=== PATIENT | male | born 1955 | race Caucasian/White ===

== ENCOUNTER 2019-11-16 17:16 | Inpatient (IN) | payer BC ==
[2019-11-16] MEDS ORDERED: SODIUM CHLORIDE 0.9% 1,000 ML IV STA ×3 (17:58→19:35)
--- NOTE | 2019-11-16 18:02 | ED ---
Male Urogenital HPI - General Chief complaint: Abdominal Pain Stated complaint: Abd Pain Time Seen by Provider: 11/16/19 17:44 Source: patient, RN notes reviewed, old records reviewed Mode of arrival: ambulatory Limitations: no limitations - History of Present Illness Initial comments: T this is a 64-year-old male DF for evaluation of difficulty with follow with decreased bowel movements increased weight loss no current hematuria, no significant dysuria has trouble urinating at times recently secondary to dehydration. Patient discharged ankle watery does drink a lot of pop. Mild nausea no vomiting no fevers no history of abdominal surgery MD Complaint: other (Abdominal pain) -: month(s) Location: abdomen Radiation: none Severity: moderate Severity scale (1-10): 4 Quality: aching Consistency: intermittent Improves with: none Worsens with: none Reports: blood in urine - Related Data Home Medications Medication Instructions Recorded Confirmed Aspirin EC [Ecotrin Low Dose] 81 mg PO DAILY 11/16/19 11/16/19 Atorvastatin Calcium [Lipitor] 80 mg PO HS 11/16/19 11/16/19 Ibuprofen 200 mg PO Q8H PRN 11/16/19 11/16/19 [email or web address] Pain Cream 1 - 2 pump TOPICAL QID PRN 11/16/19 11/16/19 carvediloL [Coreg] 6.25 mg PO BID 11/16/19 11/16/19 Allergies Allergy/AdvReac Type Severity Reaction Status Date / Time No Known Allergies Allergy Verified 11/16/19 19:18 Review of Systems ROS Statement: Those systems with pertinent positive or pertinent negative responses have been documented in the HPI. ROS Other: All systems not noted in ROS Statement are negative. Past Medical History Past Medical History: Hyperlipidemia, Hypertension History of Any Multi-Drug Resistant Organisms: None Reported Past Surgical History: Heart Catheterization With Stent, Hernia Repair, Orthopedic Surgery Additional Past Surgical History / Comment(s): Rachell hernandez x 3 Past Psychological History: No Psychological Hx Reported Smoking Status: Current every day smoker Past Alcohol Use History: Occasional Past Drug Use History: None Reported General Exam Limitations: no limitations General appearance: alert, in no apparent distress Head exam: Present: atraumatic, normocephalic, normal inspection Eye exam: Present: normal appearance, PERRL, EOMI. Absent: scleral icterus, conjunctival injection, periorbital swelling ENT exam: Present: normal exam, mucous membranes moist Neck exam: Present: normal inspection. Absent: tenderness, meningismus, lymphadenopathy Respiratory exam: Present: normal lung sounds bilaterally. Absent: respiratory distress, wheezes, rales, rhonchi, stridor Cardiovascular Exam: Present: regular rate, normal rhythm, normal heart sounds. Absent: systolic murmur, diastolic murmur, rubs, gallop, clicks GI/Abdominal exam: Present: soft, normal bowel sounds. Absent: distended, tenderness, guarding, rebound, rigid Extremities exam: Present: normal inspection, full ROM, normal capillary refill. Absent: tenderness, pedal edema, joint swelling, calf tenderness Back exam: Present: normal inspection Neurological exam: Present: alert, oriented X3, CN II-XII intact Psychiatric exam: Present: normal affect, normal mood Skin exam: Present: warm, dry, intact, normal color. Absent: rash Course Vital Signs 11/16/19 17:28 Temperature 98 F Pulse Rate 97 Respiratory 18 Rate Blood Pressure 124/81 O2 Sat by Pulse 97 Oximetry - Reevaluation(s) Reevaluation #1: 11/16/19 18:02 Medical records reviewed Reevaluation #2: 11/16/19 19:42 Spoke patient length regarding findings and questions are answered - Consultations Consultation #1: Spoke with sound who agree to admit the patient Medical Decision Making - Medical Decision Making 64 male to the ER for evaluation of weight loss, nausea vomiting. 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 Patient [place] for surgery and GI - Lab Data Result diagrams: 11/16/19 18:14 11/16/19 18:14 Lab Results 11/16/19 11/16/19 11/16/19 Range/Units 18:14 18:14 18:14 WBC 6.5 (3.8-10.6) k/uL RBC 5.02 (4.30-5.90) m/uL Hgb 14.4 (13.0-17.5) gm/dL Hct 44.1 (39.0-53.0) % MCV 87.8 (80.0-100.0) fL MCH 28.7 (25.0-35.0) pg MCHC 32.7 (31.0-37.0) g/dL RDW 13.3 (11.5-15.5) % Plt Count 105 L (150-450) k/uL Neutrophils % 69 % Lymphocytes % 21 % Monocytes % 6 % Eosinophils % 1 % Basophils % 1 % Neutrophils # 4.5 (1.3-7.7) k/uL Lymphocytes # 1.4 (1.0-4.8) k/uL Monocytes # 0.4 (0-1.0) k/uL Eosinophils # 0.1 (0-0.7) k/uL Basophils # 0.0 (0-0.2) k/uL Sodium 133 L (137-145) mmol/L Potassium 3.0 L (3.5-5.1) mmol/L Chloride 99 (98-107) mmol/L Carbon Dioxide 24 (22-30) mmol/L Anion Gap 10 mmol/L BUN 14 (9-20) mg/dL Creatinine 0.59 L (0.66-1.25) mg/dL Est GFR (CKD-EPI)AfAm >90 (>60 ml/min/1.73 sqM) Est GFR (CKD-EPI)NonAf >90 (>60 ml/min/1.73 sqM) Glucose 276 H (74-99) mg/dL Calcium 9.3 (8.4-10.2) mg/dL Total Bilirubin 8.0 H (0.2-1.3) mg/dL AST 244 H (17-59) U/L ALT 221 H (4-49) U/L Alkaline Phosphatase 491 H (38-126) U/L Creatine Kinase 62 (55-170) U/L Troponin I <0.012 (0.000-0.034) ng/mL Total Protein 6.8 (6.3-8.2) g/dL Albumin 4.1 (3.5-5.0) g/dL Amylase 50 (30-110) U/L Lipase 203 (23-300) U/L - Radiology Data Radiology results: report reviewed (CT abdPelvis - mass v cyst, US GB pending), image reviewed Disposition Clinical Impression: Abdominal pain, Pancreatitis, Hyperbilirubinemia, Nausea and vomiting, Hypokalemia Disposition: ADMITTED IP TO THIS HOSP Condition: Fair Is patient prescribed a controlled substance at d/c from ED?: No Referrals: Aliya Baker MD [Primary Care Provider] - 1-2 days
[2019-11-16 18:34] LABS: Basophils % (A) 1 %; Eosinophils # (A) 0.1 k/uL (0-0.7); Eosinophils % (A) 1 %; HCT 44.1 % (39.0-53.0); HGB 14.4 gm/dL (13.0-17.5); Lymphocytes # (A) 1.4 k/uL (1.0-4.8); Lymphocytes % (A) 21 %; MCH 28.7 pg (25.0-35.0); MCHC 32.7 g/dL (31.0-37.0); MCV 87.8 fL (80.0-100.0); Mean Platelet Volume 6.9; Monocytes # (A) 0.4 k/uL (0-1.0); Monocytes % (A) 6 %; Neutrophils # (A) 4.5 k/uL (1.3-7.7); Neutrophils % (A) 69 %; Platelet Count 105 k/uL (150-450); RBC 5.02 m/uL (4.30-5.90); RDW 13.3 % (11.5-15.5); WBC 6.5 k/uL (3.8-10.6)
[2019-11-16 18:43] LABS: ALT 221 U/L (4-49); AST 244 U/L (17-59); African American GFR (CKD) >90 (>60 ml/min/1.73 sqM); Albumin 4.1 g/dL (3.5-5.0); Alkaline Phosphatase 491 U/L (38-126); Amylase 50 U/L (30-110); Anion Gap 10 mmol/L; Blood Urea Nitrogen 14 mg/dL (9-20); Calcium 9.3 mg/dL (8.4-10.2); Carbon Dioxide 24 mmol/L (22-30); Chloride 99 mmol/L (98-107); Creatine Kinase 62 U/L (55-170); Glucose 276 mg/dL (74-99); Non-African American GFR(CKD) >90 (>60 ml/min/1.73 sqM); Sodium 133 mmol/L (137-145); Total Protein 6.8 g/dL (6.3-8.2)
--- NOTE | 2019-11-16 18:51 | CT ---
EXAMINATION TYPE: CT abdomen pelvis w con DATE OF EXAM: 11/16/2019 COMPARISON: None HISTORY: Abdominal pain, constipation and dysuria. CT DLP: 1235.9 mGycm Automated exposure control for dose reduction was used. CONTRAST: Performed with IV Contrast, patient injected with 100ml mL of Isovue 300. Lung bases are clear. There is no pleural effusion. Heart size is normal. There is no pericardial eff usion. Spleen is enlarged and measures 15 cm. Liver shows no focal defect. There is mildly dilated ga llbladder measuring 4.4 cm. The stomach is intact. There is irregular low density mass involving the body and head of the pancreas. This is elongated an d measures overall 7.5 cm in length and 3.5 cm in diameter. Intrahepatic bile ducts are not dilated. Common bile duct is not dilated. There is no adrenal mass. Kidneys show satisfactory contrast opacification. There is no hydronephrosi s. Delayed images show normal renal excretion. There is no retroperitoneal adenopathy. There is small amount of free fluid in the pelvis. Urinary bladder appears normal. There is no inguinal hernia. The re is prostatic calcification. There is no mesenteric edema. There is no ascites or free air. Appendix appears normal. There is no e vidence of a bowel obstruction. Lumbar vertebra have normal alignment. Disc spaces are fairly normal. Posterior elements are intact. The bony pelvis is intact. IMPRESSION: Large low density mass involving the pancreas. I would consider possibilities of pancreatic pseudocys t or necrotic tumor. Follow-up recommended. Mild free fluid in the pelvis. New graft no evidence of constipation. Large gallbladder suggestive of some degree of gallbladder dysfunction.
[2019-11-16] MEDS ORDERED: MORPHINE SULFATE 4 MG/ML SYRINGE IVP STA (19:35)
[2019-11-16] MEDS ORDERED: PANTOPRAZOLE 40 MG/10 ML VIAL IVP STA (19:35)
[2019-11-16] MEDS ORDERED: SODIUM CHLORIDE 0.9% 1,000 ML IV ONE (19:35)
[2019-11-16 19:51] LABS: Acetaminophen <10.0 ug/mL; Magnesium 1.6 mg/dL (1.6-2.3); Salicylate <1.0 mg/dL
[2019-11-16 20:02] LABS: Partial Thromboplastin Time 21.5 sec (22.0-30.0); Prothrombin Time 10.3 sec (9.0-12.0)
--- NOTE | 2019-11-16 20:49 | US ---
EXAMINATION TYPE: US gallbladder DATE OF EXAM: 11/16/2019 COMPARISON: NONE CLINICAL HISTORY: abd pain. abd pain with nausea EXAM MEASUREMENTS: Liver Length: 13.3 cm Gallbladder Wall: 0.3 cm CBD: 0.9 cm Right Kidney: 11.6 x 4.8 x 5.6 cm *bowel gas limits exam Pancreas: not seen due to gas Liver: wnl Gallbladder: 12.0cm in length with dependant sludge seen, no stones Evidence for sonographic Daly's sign: no CBD: upper limits of normal Right Kidney: wnl IMPRESSION: There is some echogenic bile. No gallstones. Large common bile duct consistent with some degree of g allbladder dysfunction. Large gallbladder consistent with gallbladder dysfunction. Gallbladder measur es 12 cm in length.
--- NOTE | 2019-11-16 23:35 | P.HPIM ---
History of Present Illness H&P Date: 11/16/19 The patient is a 64-year-old male with a PMH of hypertension and hyperlipidemia who presented to the ED with complaints of abdominal discomfort, anorexia, and weight loss. Patient reports that over the past 2 months, he has developed this gradually worsening diffuse abdominal pain with significant anorexia and 10-20 pound weight loss. He notes that the pain is worse postprandially especially if he has a large fatty meal. States that the pain can be as high as an 8 out of 10 immediately after eating, nonradiating, with no alleviating factors. He reports associated nausea but denied vomiting or diarrhea. Denied any prior history of gallstones. Further denied chest pain, cough, shortness of breath, fever, chills. Notes that he used to drink beers a daily basis but hasn't done so in the past several months. Denied heavy alcohol use. In the emergency room a CT abdomen pelvis revealed a large low density mass involving the pancreas, concerning for pancreatic pseudocyst versus necrotic tumor along with mild free fluid in the pelvis and a large gallbladder. Gallbladder ultrasound showed echogenic bile with no gallstones and a large gallbladder. Laboratory evaluation was reviewed with AST 244, ALT 221, alkaline phosphatase 491, total bilirubin 8, WBC count 6.5, pO2 is 105, hemoglobin 14.4, potassium 3.0, lipase 203. Review of Systems Pertinent positives and negatives as discussed in HPI, a complete review of systems was performed and all other systems are negative. Past Medical History Past Medical History: Hyperlipidemia, Hypertension History of Any Multi-Drug Resistant Organisms: None Reported Past Surgical History: Heart Catheterization With Stent, Hernia Repair, Orthopedic Surgery Additional Past Surgical History / Comment(s): Rachell hernandez x 3 Past Psychological History: No Psychological Hx Reported Smoking Status: Current every day smoker Past Alcohol Use History: Occasional Past Drug Use History: None Reported Medications and Allergies Home Medications Medication Instructions Recorded Confirmed Type Aspirin EC [Ecotrin Low Dose] 81 mg PO DAILY 11/16/19 11/16/19 History Atorvastatin Calcium [Lipitor] 80 mg PO HS 11/16/19 11/16/19 History Ibuprofen 200 mg PO Q8H PRN 11/16/19 11/16/19 History [facility] Pain Cream 1 - 2 pump TOPICAL QID PRN 11/16/19 11/16/19 History carvediloL [Coreg] 6.25 mg PO BID 11/16/19 11/16/19 History Allergies Allergy/AdvReac Type Severity Reaction Status Date / Time No Known Allergies Allergy Verified 11/16/19 19:18 Physical Exam Vitals: Vital Signs Temp Pulse Pulse Resp BP BP Pulse Ox 11/16/19 20:52 98.0 F 93 15 178/78 96 11/16/19 20:29 87 18 127/83 98 11/16/19 17:28 98 F 97 18 124/81 97 Intake and Output 11/16/19 11/16/19 11/17/19 14:59 22:59 06:59 Other: # Voids 1 Weight 81.556 kg General: non toxic, no distress, appears at stated age, normal weight Derm: no unusual rashes/lesions no unusual ecchymoses, warm, dry Head: atraumatic, normocephalic, symmetric Eyes: EOMI, no lid lag, anicteric sclera, pupils equal round reactive to light ENT: Nose and ears atraumatic, no thrush, no pharyngeal erythema Neck: No thyromegaly, no cervical lymphadenopathy, trachea midline, supple Mouth: no lip lesion, mucus membranes moist Cardiovascular: S1S2 reg, no murmur, positive posterior tibial pulse bilateral, no edema, capillary refill less than 2 seconds Lungs: CTA bilateral, no rhonchi, no rales , no accessory muscle use Abdominal: soft, nontender to palpation, no guarding, no appreciable organomegaly, normal bowel sounds Ext: no gross muscle atrophy, muscle strength 5 out of 5 in all 4 extremities grossly, no contractures, Neuro: CN II-XI grossly intact, light touch intact all 4 extremities, finger to nose within normal limits, Psych: Alert, oriented, appropriate affect Results CBC & Chem 7: 11/16/19 18:14 11/16/19 18:14 Labs: Abnormal Lab Results - Last 24 Hours (Table) 11/16/19 11/16/19 11/16/19 Range/Units 18:14 18:14 19:27 Plt Count 105 L (150-450) k/uL APTT 21.5 L (22.0-30.0) sec Sodium 133 L (137-145) mmol/L Potassium 3.0 L (3.5-5.1) mmol/L Creatinine 0.59 L (0.66-1.25) mg/dL Glucose 276 H (74-99) mg/dL Total Bilirubin 8.0 H (0.2-1.3) mg/dL AST 244 H (17-59) U/L ALT 221 H (4-49) U/L Alkaline Phosphatase 491 H (38-126) U/L Assessment and Plan Plan: Pancreatic mass with distended gallbladder and dilated biliary ducts -- luis miguel picious for malignancy -Total bilirubin significant elevated -GI consult for possible ERCP -Consider IR consult for biopsy of pancreatic mass -Nothing by mouth after midnight -Monitor liver function tests Hypokalemia -Replace and monitor Hyperglycemia -Check A1c Thrombocytopenia -Monitor CBC -Possibly secondary to underlying malignancy Sandra conditions: Hypertension, hyperlipidemia -Hold statin in setting of abnormal LFTs DVT prophylaxis -IPCDs The patient is admitted with an anticipated greater than 2 midnight stay for evaluation of pancreatic mass CODE STATUS: Full Code Discussed with: Patient Anticipated discharge date: 2-[address]: Home A total of 40 minutes was spent on the care of this complex patient more than 50% of the time was spent in counseling and care coordination.
[2019-11-17] MEDS: MORPHINE SULFATE 4 MG/ML SYRINGE IVP PRN ×2 (00:30→17:36)
[2019-11-17] MEDS: POTASSIUM CHLORIDE ER 20 MEQ TAB.ER PO SCH ×2 (00:30→02:25)
[2019-11-17 06:55] LABS: Glucose,Whole Blood 167 mg/dL (75-99)
[2019-11-17 07:29] LABS: HCT 41.9 % (39.0-53.0); HGB 13.8 gm/dL (13.0-17.5); MCH 29.3 pg (25.0-35.0); MCHC 32.9 g/dL (31.0-37.0); Mean Platelet Volume 6.9; Platelet Count 101 k/uL (150-450); RBC 4.71 m/uL (4.30-5.90); RDW 13.7 % (11.5-15.5)
[2019-11-17 08:20] LABS: ALT 232 U/L (4-49); AST 266 U/L (17-59); African American GFR (CKD) >90 (>60 ml/min/1.73 sqM); Albumin 3.4 g/dL (3.5-5.0); Albumin/Globulin Ratio 1.4; Alkaline Phosphatase 439 U/L (38-126); Anion Gap 6 mmol/L; Blood Urea Nitrogen 10 mg/dL (9-20); Calcium 8.6 mg/dL (8.4-10.2); Carbon Dioxide 24 mmol/L (22-30); Chloride 106 mmol/L (98-107); Globulin 2.5 g/dL; Glucose 174 mg/dL (74-99); Non-African American GFR(CKD) >90 (>60 ml/min/1.73 sqM); Potassium 3.6 mmol/L (3.5-5.1); Sodium 136 mmol/L (137-145); Total Bilirubin 6.9 mg/dL (0.2-1.3); Total Protein 5.9 g/dL (6.3-8.2)
[2019-11-17] MEDS ORDERED: AMPICILLIN-SULBACTAM 1.5 GM in SODIUM CHLORIDE 0.9% 50 ML IVPB STA (08:58)
[2019-11-17] MEDS ORDERED: INDOMETHACIN 50MG SUPPOSITORY RECTAL ONE ×2 (08:58→10:38)
[2019-11-17] MEDS: ASPIRIN 81 MG PO SCH (09:07)
[2019-11-17] MEDS: PANTOPRAZOLE 40 MG/10 ML VIAL IVP SCH (09:08)
[2019-11-17] MEDS: INSULIN ASPART (NovoLOG) 100 UNIT/ML VIAL SQ SCH ×5 (09:09→20:56)
[2019-11-17] MEDS: carvediloL 6.25 MG TAB PO SCH ×2 (09:09→17:31)
[2019-11-17] MEDS ORDERED: IV FLUID CONTINUATION 1,000 ML IV ONE (09:19)
--- NOTE | 2019-11-17 10:09 | P.CONS ---
History of Present Illness - Reason for Consult Consult date: 11/17/19 Elevated bilirubin Requesting physician: Brain Montemayor - Chief Complaint Abdominal pain - History of Present Illness 64-year-old male with a medical history significant for hypertension, coronary artery disease, hyperlipidemia who came to the hospital due to complaints of ab dominal pain, nausea and vomiting. The patient reports symptoms occurring over the past 4-5 weeks. He reports diffuse periumbilical and epigastric abdominal pain described as severe in nature. The patient reports that symptoms will be worsened by eating. He has lost approximately 10-20 pounds due to decreased oral intake secondary to his symptoms. He denies any radiation of the pain with no relieving factors. She denies any prior history of pancreatic or hepatobiliary dysfunction. He denies any heavy alcohol abuse and reports drinking 2-3 beers a couple times a week. On presentation he was found to have markedly elevated bilirubin at 8 with an alkaline phosphatase 491, AST 244 and ALT 221. Ultrasound of the abdomen for evaluation showed some echogenic bile with no gallstones and a 1 cm common bile duct with a large gallbladder as gallbladder dysfunction. Computed tomography scan performed in evaluation showed a large low-density mass involving the pancreas with consideration for pancreatic pseudocyst versus a necrotic tumor with the large gallbladder again redemonstrated. Review of Systems REVIEW OF SYSTEMS: CONSTITUTIONAL: Denies any fevers, chills, but does report fatigue and 10-20 pound weight loss. CARDIOVASCULAR: Denies any chest pain, palpitations high or low blood pressures, does report a known history of coronary artery disease and stent placement. RESPIRATORY: Denies any shortness of breath, hemoptysis or cough. GENITOURINARY: No dysuria or hematuria. MUSCULOSKELETAL: No weakness reported. SKIN: Denies any new rashes or lesions, jaundice or pallor. PSYCHIATRIC: Denies any depression or anxiety. NEUROLOGY: Denies headache, denies any new focal deficits. EARS/NOSE/THROAT: No recent hearing change, congestion, nasal discharge or sore throat. EYES: No pain in eyes, discharge or change in vision. GASTROINTESTINAL: As per HPI. Past Medical History Past Medical History: Hyperlipidemia, Hypertension Additional Past Medical History / Comment(s): prediabetic, Last Myocardial Infarction Date:: 07/2017 History of Any Multi-Drug Resistant Organisms: None Reported Past Surgical History: Heart Catheterization With Stent, Hernia Repair, Orthopedic Surgery Additional Past Surgical History / Comment(s): R david x 3 Past Anesthesia/Blood Transfusion Reactions: No Reported Reaction Date of Last Stent Placement:: 2017 Past Psychological History: No Psychological Hx Reported Smoking Status: Current every day smoker Past Alcohol Use History: Occasional Past Drug Use History: None Reported Additional History: Family history: Reviewed with the patient and noncontributory to current medical presentation Medications and Allergies Home Medications Medication Instructions Recorded Confirmed Type Aspirin EC [Ecotrin Low Dose] 81 mg PO DAILY 11/16/19 11/16/19 History Atorvastatin Calcium [Lipitor] 80 mg PO HS 11/16/19 11/16/19 History Ibuprofen 200 mg PO Q8H PRN 11/16/19 11/16/19 History [facility] Pain Cream 1 - 2 pump TOPICAL QID PRN 11/16/19 11/16/19 History carvediloL [Coreg] 6.25 mg PO BID 11/16/19 11/16/19 History Allergies Allergy/AdvReac Type Severity Reaction Status Date / Time No Known Allergies Allergy Verified 11/16/19 19:18 Physical Exam Vitals: Vital Signs Temp Pulse Pulse Resp BP BP Pulse Ox 11/17/19 06:50 98.3 F 76 16 142/79 96 11/17/19 04:19 15 11/17/19 00:46 98.4 F 82 15 138/71 95 11/17/19 00:30 16 11/16/19 23:12 16 11/16/19 20:52 98.0 F 93 15 178/78 96 11/16/19 20:29 87 18 127/83 98 11/16/19 17:28 98 F 97 18 124/81 97 Intake and Output 11/16/19 11/17/19 11/17/19 22:59 06:59 14:59 Other: # Voids 1 2 Weight 81.556 kg 81.556 kg On physical examination, patient appears comfortable in no apparent distress. HEAD: Normocephalic, atraumatic. EYES: Scleral icterus. No conjunctival injection. MOUTH: No lesions, tongue midline. NECK: Trachea midline, no gross abnormalities. CHEST: Decreased air entry in all mccain. HEART: S1-S2 appreciated. ABDOMEN: Soft, thin and mildly tender to palpation. Bowel sounds are positive. No organomegaly. No guarding or rigidity. EXTREMITIES: No pedal edema. SKIN: No rashes, jaundice. NEUROLOGIC: Alert and oriented x3. No focal deficits. Results CBC & Chem 7: 11/17/19 07:03 11/17/19 07:03 Labs: Abnormal Lab Results - Last 24 Hours (Table) 11/16/19 11/16/19 11/16/19 Range/Units 18:14 18:14 19:27 Plt Count 105 L (150-450) k/uL APTT 21.5 L (22.0-30.0) sec Sodium 133 L (137-145) mmol/L Potassium 3.0 L (3.5-5.1) mmol/L Creatinine 0.59 L (0.66-1.25) mg/dL Glucose 276 H (74-99) mg/dL POC Glucose (mg/dL) (75-99) mg/dL Total Bilirubin 8.0 H (0.2-1.3) mg/dL AST 244 H (17-59) U/L ALT 221 H (4-49) U/L Alkaline Phosphatase 491 H (38-126) U/L Total Protein (6.3-8.2) g/dL Albumin (3.5-5.0) g/dL 11/17/19 11/17/19 11/17/19 Range/Units 06:54 07:03 07:03 Plt Count 101 L (150-450) k/uL APTT (22.0-30.0) sec Sodium 136 L (137-145) mmol/L Potassium (3.5-5.1) mmol/L Creatinine 0.58 L (0.66-1.25) mg/dL Glucose 174 H (74-99) mg/dL POC Glucose (mg/dL) 167 H (75-99) mg/dL Total Bilirubin 6.9 H (0.2-1.3) mg/dL AST 266 H (17-59) U/L ALT 232 H (4-49) U/L Alkaline Phosphatase 439 H (38-126) U/L Total Protein 5.9 L (6.3-8.2) g/dL Albumin 3.4 L (3.5-5.0) g/dL CT scan - abdomen: report reviewed (Computed tomography scan of the abdomen showing a pancreatic pseudocyst versus necrotic tumor with an enlarged gallbladder and dilated CBD.) US - abdomen: report reviewed Assessment and Plan (1) Abdominal pain Narrative/Plan: 64-year-old male presenting to the hospital with abdominal pain, nausea, decreased oral intake and weight loss. Found on imaging to have a pancreatic pseudocyst versus necrotic mass with laboratory evaluation significant for total bilirubin of 8. Both ultrasound and CT showed a distended gallbladder with a dilated CBD. Current Visit: Yes Status: Acute Code(s): R10.9 - UNSPECIFIED ABDOMINAL PAIN SNOMED Code(s): 14011733 (2) Hyperbilirubinemia Current Visit: Yes Status: Acute Code(s): E80.6 - OTHER DISORDERS OF BILIRUBIN METABOLISM SNOMED Code(s): 82394423 (3) Nausea and vomiting Current Visit: Yes Status: Acute Code(s): R11.2 - NAUSEA WITH VOMITING, UNSPECIFIED SNOMED Code(s): 24513998 Plan: Supportive care Nothing by mouth Plan for ERCP due to concerns over CBD obstruction either from external compression or choledocholithiasis Patient will need further characterization of the pancreatic cyst versus mass with either MRI which he reports is not possible due to cardiac stents which she states are not compatible with MRI or endoscopic ultrasound at a tertiary referral center Tumor markers will be ordered Antibiotic therapy and Indocin ordered Further recommendations pending procedure and clinical course Thank you for allowing us to participate in the care of the patient
[2019-11-17] MEDS ORDERED: LACTATED RINGERS 1,000 ML IV ONE ×2 (10:20)
[2019-11-17] MEDS ORDERED: SUCCINYLCHOLINE CHLORIDE 100 MG/5 ML SYR IV ONE (10:24)
[2019-11-17] MEDS ORDERED: PROPOFOL 10 MG/ML 20 ML VIAL IV ONE (10:24)
[2019-11-17] MEDS ORDERED: IOPAMIDOL-300 50ML BTL MISCELLANE ONE (10:40)
--- NOTE | 2019-11-17 10:57 | P.GSCN ---
History of Present Illness Consult date: 11/17/19 Reason for Consult: Abdominal pain History of present illness: Patient presented to the hospital complaining of postprandial abdominal pain. M ostly epigastric. Admits to some dark colored urine. Denies yellowness to his skin. Labs were quite impressive on arrival with bilirubin of 8 and elevated transaminases as well. His amylase and lipase are normal. Ultrasound shows a dilated CBD and a dilated gallbladder. CAT scan showed a cystic lesion of the head of the pancreas. Patient was actually seen in the endoscopy suite where he is about to undergo ERCP. Appears comfortable. Review of Systems The patient denies any acute changes in vision or hearing, no dysphagia or odynophagia, no chest pain or shortness of breath, no dysuria or hematuria, no headache, no runny nose, no rectal bleeding or melena, no unexplained weight loss Past Medical History Past Medical History: Hyperlipidemia, Hypertension Additional Past Medical History / Comment(s): prediabetic, Last Myocardial Infarction Date:: 07/2017 History of Any Multi-Drug Resistant Organisms: None Reported Past Surgical History: Heart Catheterization With Stent, Hernia Repair, Orthopedic Surgery Additional Past Surgical History / Comment(s): Rcahell hernandez x 3 Past Anesthesia/Blood Transfusion Reactions: No Reported Reaction Date of Last Stent Placement:: 2017 Past Psychological History: No Psychological Hx Reported Smoking Status: Current every day smoker Past Alcohol Use History: Occasional Past Drug Use History: None Reported Medications and Allergies Home Medications Medication Instructions Recorded Confirmed Type Aspirin EC [Ecotrin Low Dose] 81 mg PO DAILY 11/16/19 11/16/19 History Atorvastatin Calcium [Lipitor] 80 mg PO HS 11/16/19 11/16/19 History Ibuprofen 200 mg PO Q8H PRN 11/16/19 11/16/19 History [facility] Pain Cream 1 - 2 pump TOPICAL QID PRN 11/16/19 11/16/19 History carvediloL [Coreg] 6.25 mg PO BID 11/16/19 11/16/19 History Allergies Allergy/AdvReac Type Severity Reaction Status Date / Time No Known Allergies Allergy Verified 11/16/19 19:18 Surgical - Exam Vital Signs Temp Pulse Resp BP Pulse Ox 98 F 97 18 124/81 97 11/16/19 17:28 11/16/19 17:28 11/16/19 17:28 11/16/19 17:28 11/16/19 17:28 Physical exam: General: Well-developed, well-nourished HEENT: Normocephalic, sclerae icteric Abdomen: Mild epigastric tenderness, nondistended Extremities: No edema Neuro: Alert and oriented Results - Labs 11/17/19 07:03 11/17/19 07:03 Abnormal Lab Results - Last 24 Hours (Table) 11/16/19 11/16/19 11/16/19 Range/Units 18:14 18:14 19:27 Plt Count 105 L (150-450) k/uL APTT 21.5 L (22.0-30.0) sec Sodium 133 L (137-145) mmol/L Potassium 3.0 L (3.5-5.1) mmol/L Creatinine 0.59 L (0.66-1.25) mg/dL Glucose 276 H (74-99) mg/dL POC Glucose (mg/dL) (75-99) mg/dL Total Bilirubin 8.0 H (0.2-1.3) mg/dL AST 244 H (17-59) U/L ALT 221 H (4-49) U/L Alkaline Phosphatase 491 H (38-126) U/L Total Protein (6.3-8.2) g/dL Albumin (3.5-5.0) g/dL 11/17/19 11/17/19 11/17/19 Range/Units 06:54 07:03 07:03 Plt Count 101 L (150-450) k/uL APTT (22.0-30.0) sec Sodium 136 L (137-145) mmol/L Potassium (3.5-5.1) mmol/L Creatinine 0.58 L (0.66-1.25) mg/dL Glucose 174 H (74-99) mg/dL POC Glucose (mg/dL) 167 H (75-99) mg/dL Total Bilirubin 6.9 H (0.2-1.3) mg/dL AST 266 H (17-59) U/L ALT 232 H (4-49) U/L Alkaline Phosphatase 439 H (38-126) U/L Total Protein 5.9 L (6.3-8.2) g/dL Albumin 3.4 L (3.5-5.0) g/dL Diabetes panel 11/16/19 11/17/19 Range/Units 18:14 07:03 Sodium 133 L 136 L (137-145) mmol/L Potassium 3.0 L 3.6 (3.5-5.1) mmol/L Chloride 99 106 (98-107) mmol/L Carbon Dioxide 24 24 (22-30) mmol/L BUN 14 10 (9-20) mg/dL Creatinine 0.59 L 0.58 L (0.66-1.25) mg/dL Glucose 276 H 174 H (74-99) mg/dL Calcium 9.3 8.6 (8.4-10.2) mg/dL AST 244 H 266 H (17-59) U/L ALT 221 H 232 H (4-49) U/L Alkaline Phosphatase 491 H 439 H (38-126) U/L Total Protein 6.8 5.9 L (6.3-8.2) g/dL Albumin 4.1 3.4 L (3.5-5.0) g/dL Calcium panel 11/16/19 11/17/19 Range/Units 18:14 07:03 Calcium 9.3 8.6 (8.4-10.2) mg/dL Albumin 4.1 3.4 L (3.5-5.0) g/dL Pituitary panel 11/16/19 11/17/19 Range/Units 18:14 07:03 Sodium 133 L 136 L (137-145) mmol/L Potassium 3.0 L 3.6 (3.5-5.1) mmol/L Chloride 99 106 (98-107) mmol/L Carbon Dioxide 24 24 (22-30) mmol/L BUN 14 10 (9-20) mg/dL Creatinine 0.59 L 0.58 L (0.66-1.25) mg/dL Glucose 276 H 174 H (74-99) mg/dL Calcium 9.3 8.6 (8.4-10.2) mg/dL Adrenal panel 11/16/19 11/17/19 Range/Units 18:14 07:03 Sodium 133 L 136 L (137-145) mmol/L Potassium 3.0 L 3.6 (3.5-5.1) mmol/L Chloride 99 106 (98-107) mmol/L Carbon Dioxide 24 24 (22-30) mmol/L BUN 14 10 (9-20) mg/dL Creatinine 0.59 L 0.58 L (0.66-1.25) mg/dL Glucose 276 H 174 H (74-99) mg/dL Calcium 9.3 8.6 (8.4-10.2) mg/dL Total Bilirubin 8.0 H 6.9 H (0.2-1.3) mg/dL AST 244 H 266 H (17-59) U/L ALT 221 H 232 H (4-49) U/L Alkaline Phosphatase 491 H 439 H (38-126) U/L Total Protein 6.8 5.9 L (6.3-8.2) g/dL Albumin 4.1 3.4 L (3.5-5.0) g/dL Assessment and Plan (1) Hyperbilirubinemia Narrative/Plan: 64-year-old male with abdominal pain and cystic lesion of the pancreas. Agree with plans for ERCP. Patient may require MR I pancreas or endoscopic ultrasound following that. Will follow. Current Visit: Yes Status: Acute Code(s): E80.6 - OTHER DISORDERS OF BILIRUBIN METABOLISM SNOMED Code(s): 21144399
--- NOTE | 2019-11-17 11:26 | P.PCN ---
Date of Procedure: 11/17/19 Description of Procedure: Brief history: 64-year-old male with a medical history significant for hypertension, coronary artery disease, hyperlipidemia who came to the hospital due to complaints of abdominal pain, nausea and vomiting. The patient reports symptoms occurring over the past 4-5 weeks. He reports diffuse periumbilical and epigastric abdominal pain described as severe in nature. The patient reports that symptoms will be worsened by eating. He has lost approximately 10-20 pounds due to decreased oral intake secondary to his symptoms. He denies any radiation of the pain with no relieving factors. She denies any prior history of pancreatic or hepatobiliary dysfunction. He denies any heavy alcohol abuse and reports drinking 2-3 beers a couple times a week. On presentation he was found to have markedly elevated bilirubin at 8 with an alkaline phosphatase 491, AST 244 and ALT 221. Ultrasound of the abdomen for evaluation showed some echogenic bile with no gallstones and a 1 cm common bile duct with a large gallbladder as gallbladder dysfunction. Computed tomography scan performed in evaluation showed a large low-density mass involving the pancreas with consideration for pancreatic pseudocyst versus a necrotic tumor with the large gallbladder again redemonstrated. Procedure performed: ERCP with cholangiogram, sphincterotomy and balloon sweep of the bile duct Preoperative diagnoses: Elevated bilirubin, abdominal pain, dilated CBD, suspected CBD obstruction IV sedation per anesthesia Estimated blood loss: Minimal. Procedure: After informed consent was obtained from the patient and after the risks benefits and complications including bleeding perforation and pancreatitis explained in detail the patient was brought into the endoscopy unit. The patient was placed in prone position and IV conscious sedation was administered by anesthesia under continuous monitoring. The Olympus side-viewing duodenoscope was then inserted into the mouth and esophagus intubated without any difficulty. The scope was gradually advanced into the stomach and duodenum. The major papilla was identified without any difficulty and appeared normal. Cannulation of the bile duct with an autotome was performed. A wire was passed into the CBD and dye was injected with a diffusely dilated CBD noted except for some narrowing as the CBD approached the ampulla with suspected external compression, there were no definitive filling defects. The intrahepatics were seen. An 8 mm sphincterotomy was then performed. The sphincterotome was then exchanged over a wire for a balloon with serial sweeping of the CBD significant only for a large amount of bile, and good bile flow. The patient tolerated the procedure well. Impression: ERCP with cholangiogram with a dilated cecum the with tapering as it approached the ampulla and suspicion for external compression. Sphincterotomy and balloon sweep of the CBD productive of large amount of bile with no stones noted. Recommendations: The findings of this examination were discussed with the patient. Okay for full liquids. Continue to monitor CBC, BMP, LFTs. Monitor for signs or symptoms of pancreatitis. Tumor markers ordered. Patient will require further characterization of the graphic cyst versus mass seen on computed tomography scan and if prior cardiac stents are not compatible with the MRI and prohibited would recommend EUS for further evaluation either as a transfer or after discharge pending clinical course.
--- NOTE | 2019-11-17 11:54 | FL ---
Fluoroscopy INDICATION: Pain FINDINGS: Fluoroscopy time: 21 seconds. Images obtained: 3. Within the distal common bile duct there are 2 filling defects which could be small stones. IMPRESSIONS: 1. Documentation of fluoroscopy. 2. Couple small stones may be on the initial image.
--- NOTE | 2019-11-17 13:05 | P.PN ---
Subjective Progress Note Date: 11/17/19 Patient was seen and examined. Seen after ERCP. Underwent sphincterotomy and balloon sweep of the bile duct. Complains of fatigue after his surgery. He denies any chest pain, shortness breath or palpitations. No nausea or vomiting. No fever or chills. Objective - Vital Signs Vital signs: Vital Signs Temp 97.2 F L 11/17/19 11:26 Pulse 77 11/17/19 11:48 Resp 18 11/17/19 11:48 BP 138/74 11/17/19 11:48 Pulse Ox 99 11/17/19 11:48 Intake & Output 11/16/19 11/17/19 11/17/19 18:59 06:59 18:59 Intake Total 1500 Balance 1500 Weight 81.556 kg 81.556 kg Intake: IV 1500 Other: # Voids 2 - Exam General: [non toxic], [no distress], [appears at stated age] Derm: [warm], [dry] Head: [atraumatic], [normocephalic], [symmetric] Eyes: [EOMI], [no lid lag], [anicteric sclera] Mouth: [no lip lesion], [mucus membranes moist] Cardiovascular: [S1S2 reg], [no murmur], [positive posterior tibial pulse bilateral], Lungs: [CTA bilateral], [no rhonchi, no rales] , [no accessory muscle use] Abdominal: [soft], [ nontender to palpation], [no guarding], [no appreciable organomegaly] Ext: [no gross muscle atrophy], [no edema], [no contractures] Neuro: [no focal neuro deficits] Psych: [Alert], [oriented], [appropriate affect] - Labs CBC & Chem 7: 11/17/19 07:03 11/17/19 07:03 Labs: Abnormal Lab Results - Last 24 Hours (Table) 11/16/19 11/16/19 11/16/19 Range/Units 18:14 18:14 19:27 Plt Count 105 L (150-450) k/uL APTT 21.5 L (22.0-30.0) sec Sodium 133 L (137-145) mmol/L Potassium 3.0 L (3.5-5.1) mmol/L Creatinine 0.59 L (0.66-1.25) mg/dL Glucose 276 H (74-99) mg/dL POC Glucose (mg/dL) (75-99) mg/dL Total Bilirubin 8.0 H (0.2-1.3) mg/dL AST 244 H (17-59) U/L ALT 221 H (4-49) U/L Alkaline Phosphatase 491 H (38-126) U/L Total Protein (6.3-8.2) g/dL Albumin (3.5-5.0) g/dL 11/17/19 11/17/19 11/17/19 Range/Units 06:54 07:03 07:03 Plt Count 101 L (150-450) k/uL APTT (22.0-30.0) sec Sodium 136 L (137-145) mmol/L Potassium (3.5-5.1) mmol/L Creatinine 0.58 L (0.66-1.25) mg/dL Glucose 174 H (74-99) mg/dL POC Glucose (mg/dL) 167 H (75-99) mg/dL Total Bilirubin 6.9 H (0.2-1.3) mg/dL AST 266 H (17-59) U/L ALT 232 H (4-49) U/L Alkaline Phosphatase 439 H (38-126) U/L Total Protein 5.9 L (6.3-8.2) g/dL Albumin 3.4 L (3.5-5.0) g/dL Assessment and Plan Assessment: Pancreatic mass with distended gallbladder and dilated biliary ducts -- suspicious for malignancy -Total bilirubin significant elevated -ERCP with cholangiogram shows suspicion for external compression, sphincterotomy and balloon sweep of CBD performed -GI consulted - Follow tumor markers to be ordered by GI - Needs MRI evaluation of pancreas vs EUS -Start full liquid diet -Monitor liver function tests Hyperglycemia -Check A1c -Insulin sliding scale with regular Accu-Cheks and hypoglycemic precautions Thrombocytopenia -Monitor CBC -Possibly secondary to underlying malignancy Sandra conditions: Hypertension, hyperlipidemia -Hold statin in setting of abnormal LFTs DVT prophylaxis -IPCDs
[2019-11-17 16:40] LABS: Glucose,Whole Blood 253 mg/dL (75-99)
[2019-11-17 18:48] LABS: Hemoglobin A1C 13.2 % (4.0-6.0)
[2019-11-17 20:24] LABS: Glucose,Whole Blood 270 mg/dL (75-99)
[2019-11-18] MEDS: MORPHINE SULFATE 4 MG/ML SYRINGE IVP PRN ×4 (01:23→22:24)
[2019-11-18 02:06] VITALS: RESP 16
[2019-11-18] MEDS: ASPIRIN 81 MG PO SCH (07:01)
[2019-11-18] MEDS: carvediloL 6.25 MG TAB PO SCH ×2 (07:01→17:28)
[2019-11-18] MEDS: PANTOPRAZOLE 40 MG/10 ML VIAL IVP SCH (07:02)
[2019-11-18] MEDS: INSULIN ASPART (NovoLOG) 100 UNIT/ML VIAL SQ SCH ×4 (07:03→22:26)
[2019-11-18 07:26] LABS: Glucose,Whole Blood 194 mg/dL (75-99)
[2019-11-18 09:22] LABS: Alpha Fetoprotein, Tumor Mkr 2.6 ng/mL (0.0-7.9)
[2019-11-18 09:31] LABS: African American GFR (CKD) 123.1 (60.0-200.0); Albumin 3.3 g/dL (3.80-4.90); Albumin/Globulin Ratio 1.83 (1.60-3.17); Anion Gap 8.9 mmol/L (4.00-12.00); Calcium 8.5 mg/dL (8.7-10.3); Carbon Dioxide 23.1 mmol/L (21.6-31.8); Globulin 1.8 g/dL (1.6-3.3); Non-African American GFR(CKD) 106.3 (60.0-200.0); Potassium 3.4 mmol/L (3.5-5.5); Total Bilirubin 7.1 mg/dL (0.3-1.2); Total Protein 5.1 g/dL (6.2-8.2)
[2019-11-18] MEDS ORDERED: Potassium Replacement Protocol 1 EACH MISC MISCELLANE PRN ×2 (10:29→10:46)
[2019-11-18] MEDS: NICOTINE 14MG/24HR PATCH TRANSDERM SCH (11:30)
[2019-11-18] MEDS: POTASSIUM CHLORIDE ER 20 MEQ TAB.ER PO SCH ×2 (11:30→12:22)
[2019-11-18 11:51] LABS: Glucose,Whole Blood 231 mg/dL (75-99)
--- NOTE | 2019-11-18 12:13 | P.PN ---
<Madonna Gonzales - Last Filed: 11/18/19 12:03> Subjective Progress Note Date: 11/18/19 CHIEF COMPLAINT: Abdominal pain HISTORY OF PRESENT ILLNESS: Patient is still reporting intermittent epigastric abdominal pain. His urine is still dark. He is status post ERCP with report stating dilated cecum with tapering as it approached the ampulla and suspicion for external compression. Sphincterotomy and balloon sweep of the CBD productive of large amount of bile with no stones noted. Total bilirubin is 7.1 AST 203 ALT 221 alk phos 500 AFP 2.6 tumor marker 19 9 pending. Potassium 3.4 and being replaced by medicine. Patient is afebrile. He is on a full liquid diet and reports that he is hungry. He denies any nausea or vomiting. He has flatus. PHYSICAL EXAM: VITAL SIGNS: Reviewed. GENERAL: Well-developed in no acute distress. HEENT: No sclera icterus. Extraocular movements grossly intact. Moist buccal mucosa. Head is atraumatic, normocephalic. ABDOMEN: Soft. Nondistended. Epigastric tenderness with palpation NEUROLOGIC: Alert and oriented. Cranial nerves II through XII grossly intact. ASSESSMENT: 1. Hyperbilirubinemia 2. Epigastric abdominal pain 3. Cystic lesion of the pancreas PLAN: -Defer to GI for further recommendations Physician Manufacturing Scheduler note has been reviewed by physician. Signing provider agrees with the documented findings, assessment, and plan of care. Objective - Vital Signs Vital signs: Vital Signs Temp 98.0 F 11/18/19 07:00 Pulse 67 11/18/19 07:00 Resp 16 11/18/19 07:00 BP 117/70 11/18/19 07:00 Pulse Ox 94 L 11/18/19 07:00 Intake & Output 11/17/19 11/18/19 11/18/19 18:59 06:59 18:59 Intake Total 1500 Output Total 1 Balance 1499 Intake: IV 1500 Output: Urine/Stool Mix 1 Other: # Voids 1 2 - Labs CBC & Chem 7: 11/17/19 07:03 11/18/19 06:45 Labs: Abnormal Lab Results - Last 24 Hours (Table) 11/17/19 11/17/19 11/17/19 Range/Units 07:03 16:38 20:22 Potassium (3.5-5.5) mmol/L Glucose (70-110) mg/dL POC Glucose (mg/dL) 253 H 270 H (75-99) mg/dL Hemoglobin A1c 13.2 H (4.0-6.0) % Calcium (8.7-10.3) mg/dL Total Bilirubin (0.3-1.2) mg/dL AST (14-35) U/L ALT (10-49) U/L Alkaline Phosphatase (41-126) U/L Total Protein (6.2-8.2) g/dL Albumin (3.80-4.90) g/dL 11/18/19 11/18/19 11/18/19 Range/Units 06:45 07:02 11:38 Potassium 3.4 L (3.5-5.5) mmol/L Glucose 216 H (70-110) mg/dL POC Glucose (mg/dL) 194 H 231 H (75-99) mg/dL Hemoglobin A1c (4.0-6.0) % Calcium 8.5 L (8.7-10.3) mg/dL Total Bilirubin 7.1 H (0.3-1.2) mg/dL AST 203 H (14-35) U/L ALT 221 H (10-49) U/L Alkaline Phosphatase 500 H (41-126) U/L Total Protein 5.1 L (6.2-8.2) g/dL Albumin 3.30 L (3.80-4.90) g/dL <Reji Morejon - Last Filed: 11/18/19 12:27> Subjective As above. Patient's labs minimally improved. Still having upper abdominal pain. Await decision regarding MR I versus endoscopic ultrasound. No surgical intervention planned at this time. Objective - Vital Signs Vital signs: Vital Signs Temp 98.0 F 11/18/19 07:00 Pulse 67 11/18/19 07:00 Resp 16 11/18/19 07:00 BP 117/70 11/18/19 07:00 Pulse Ox 94 L 11/18/19 07:00 Intake & Output 11/17/19 11/18/19 11/18/19 18:59 06:59 18:59 Intake Total 1500 Output Total 1 Balance 1499 Intake: IV 1500 Output: Urine/Stool Mix 1 Other: # Voids 1 2 - Labs CBC & Chem 7: 11/17/19 07:03 11/18/19 06:45 Labs: Abnormal Lab Results - Last 24 Hours (Table) 11/17/19 11/17/19 11/17/19 Range/Units 07:03 16:38 20:22 Potassium (3.5-5.5) mmol/L Glucose (70-110) mg/dL POC Glucose (mg/dL) 253 H 270 H (75-99) mg/dL Hemoglobin A1c 13.2 H (4.0-6.0) % Calcium (8.7-10.3) mg/dL Total Bilirubin (0.3-1.2) mg/dL AST (14-35) U/L ALT (10-49) U/L Alkaline Phosphatase (41-126) U/L Total Protein (6.2-8.2) g/dL Albumin (3.80-4.90) g/dL 11/18/19 11/18/19 11/18/19 Range/Units 06:45 07:02 11:38 Potassium 3.4 L (3.5-5.5) mmol/L Glucose 216 H (70-110) mg/dL POC Glucose (mg/dL) 194 H 231 H (75-99) mg/dL Hemoglobin A1c (4.0-6.0) % Calcium 8.5 L (8.7-10.3) mg/dL Total Bilirubin 7.1 H (0.3-1.2) mg/dL AST 203 H (14-35) U/L ALT 221 H (10-49) U/L Alkaline Phosphatase 500 H (41-126) U/L Total Protein 5.1 L (6.2-8.2) g/dL Albumin 3.30 L (3.80-4.90) g/dL Assessment and Plan (1) Hyperbilirubinemia Current Visit: Yes Status: Acute Code(s): E80.6 - OTHER DISORDERS OF BILIRUBIN METABOLISM SNOMED Code(s): 85250251
[2019-11-18 14:45] LABS: Cancer Antigen 19-9 11425.6 U/mL (0.0-34.9)
[2019-11-18 15:01] VITALS: BMI 23.1
--- NOTE | 2019-11-18 15:29 | P.DS ---
Providers Date of admission: 11/16/19 19:35 Expected date of discharge: 11/18/19 Attending physician: Adis Reich MD Consults: 11/16/19 19:35 Consult Physician Routine Consulting Provider: Reji Morejon Consult Reason/Comments: abd pain Do you want consulting provider notified?: Yes Consult Physician Routine Consulting Provider: Bull Lombardi Consult Reason/Comments: pancreas mass Do you want consulting provider notified?: Yes Primary care physician: Uab Hospital Course: The patient is a 64-year-old male with a PMH of hypertension and hyperlipidemia who presented to the ED with complaints of abdominal discomfort, anorexia, and weight loss. Patient reports that over the past 2 months, he has developed this gradually worsening diffuse abdominal pain with significant anorexia and 10-20 pound weight loss. He notes that the pain is worse postprandially especially if he has a large fatty meal. States that the pain can be as high as an 8 out of 10 immediately after eating, nonradiating, with no alleviating factors. He reports associated nausea but denied vomiting or diarrhea. Denied any prior history of gallstones. Further denied chest pain, cough, shortness of breath, fever, chills. Notes that he used to drink beers a daily basis but hasn't done so in the past several months. Denied heavy alcohol use. In the emergency room a CT abdomen pelvis revealed a large low density mass involving the pancreas, concerning for pancreatic pseudocyst versus necrotic tumor along with mild free fluid in the pelvis and a large gallbladder. Gallbladder ultrasound showed echogenic bile with no gallstones and a large gallbladder. Laboratory evaluation was reviewed with AST 244, ALT 221, alkaline phosphatase 491, total bilirubin 8, WBC count 6.5, pO2 is 105, hemoglobin 14.4, potassium 3.0, lipase 203. Patient underwent ERCP with cholangiogram with a dilated cecum as it approached sample less suspicion for external compression. Patient underwent sphincterotomy and balloon sweep of the CBD. Alpha-fetoprotein was negative. CA-19-9 came back elevated at 11,425. His potassium was 3.4 this morning which was replaced. A1c came back at 13.5. His total bilirubin was 7.1, AST 203, ALT 221 and alkaline phosphatase of 500 at the time of discharge. GI recommended transfer to tertiary facility for endoscopic ultrasound. [facility] was called and accepted the patient for transfer. Patient was seen and examined. No acute events overnight. Patient continues to report abdominal discomfort. No nausea or vomiting. He denies any chest pain, shortness breath or palpitations. General: [non toxic], [no distress], [appears at stated age] Derm: [warm], [dry] Head: [atraumatic], [normocephalic], [symmetric] Eyes: [EOMI], [no lid lag], [anicteric sclera] Mouth: [no lip lesion], [mucus membranes moist] Cardiovascular: [S1S2 reg], [no murmur], [positive DP pulse bilateral], Lungs: [CTA bilateral], [no rhonchi, no rales] , [no accessory muscle use] Abdominal: [soft], [ nontender to palpation], [no guarding], [no appreciable organomegaly] Ext: [no gross muscle atrophy], [no edema], [no contractures] Neuro: [no focal neuro deficits] Psych: [Alert], [oriented], [appropriate affect] Pancreatic mass with distended gallbladder and dilated biliary ducts -- suspicious for malignancy -Total bilirubin significant elevated -ERCP with cholangiogram shows suspicion for external compression, sphincterotomy and balloon sweep of CBD performed -GI consulted -Alpha-fetoprotein negative, CA-19-9 elevated at 11,425 - Needs EUS as per GI -Continue full liquid diet -Monitor liver function tests Hypokalemia - K 3.4 - Replace via protocol and repeat BMP tomorrow morning. Hyperglycemia -A1c 13.2 -Insulin sliding scale with regular Accu-Cheks and hypoglycemic precautions Thrombocytopenia -Monitor CBC -Possibly secondary to underlying malignancy Chronic conditions: Hypertension, hyperlipidemia -Hold statin in setting of abnormal LFTs DVT prophylaxis -IPCDs [Patient with likely pancreatic cancer obstructing bile duct. Needs EUS. [facility] willing to accept the patient. This complex discharge took about 45 minutes to complete.] Pertinent Studies: CT abdomen and pelvis, gallbladder ultrasound, ERCP Procedures: ERCP with cholangiogram Patient Condition at Discharge: Stable Plan - Discharge Summary Discharge Rx Participant: No New Discharge Prescriptions: New Nicotine 14Mg/24Hr Patch [Habitrol] 1 patch TRANSDERM DAILY patch Continue Aspirin EC [Ecotrin Low Dose] 81 mg PO DAILY carvediloL [Coreg] 6.25 mg PO BID Discontinued Ibuprofen 200 mg PO Q8H PRN PRN Reason: [facility] Pain Cream 1 - 2 pump TOPICAL QID PRN PRN Reason: Pain Atorvastatin Calcium [Lipitor] 80 mg PO HS Discharge Medication List Aspirin EC [Ecotrin Low Dose] 81 mg PO DAILY 11/16/19 [History] carvediloL [Coreg] 6.25 mg PO BID 11/16/19 [History] Nicotine 14Mg/24Hr Patch [Habitrol] 1 patch TRANSDERM DAILY patch 11/18/19 [Rx] Follow up Appointment(s)/Referral(s): Aliya Baker MD [Primary Care Provider] - 1-2 days Discharge Disposition: OTHER INSTITUTION NOT DEFINED
[2019-11-18 17:30] LABS: Glucose,Whole Blood 268 mg/dL (75-99)
[2019-11-18 20:45] LABS: Glucose,Whole Blood 244 mg/dL (75-99)
--- NOTE | 2019-11-18 21:42 | PN ---
PROGRESS NOTE DATE OF SERVICE: 11/18/2019 Patient is a 64-year-old pleasant white male admitted to the hospital with abdominal pain, weight loss of almost 60 pounds in the last one year duration and elevated LFTs and jaundice. He underwent ERCP by Dr. Lombardi yesterday that showed dilated common bile duct with slight tapering at the distal common bile duct, status post biliary sphincterotomy and balloon sweep with good free flowing of the bile but there was evidence of extrinsic compression noted. His CT scan done earlier showed a 7.3 cm cystic lesion in the head of the pancreas and possibility of necrotic tumor could not be excluded. His serum transaminases continued to remain elevated and bilirubin is up to 7.1. This morning, he continues to complain of abdominal pain. No nausea, no vomiting. No fever, chills, or night sweats. PHYSICAL EXAMINATION: Appears comfortable, no apparent distress. Vital signs stable. Blood pressure 110/86, pulse rate 99 per minute and afebrile. HEENT examination unremarkable. Conjunctivae pink. Sclerae deeply icteric. Oral cavity no lesions. NECK no JVD or lymph node enlargement. CHEST was clear to auscultation. HEART: Regular rate and rhythm. ABDOMEN: Soft with mild tenderness in the epigastric and right upper quadrant area. EXTREMITIES: No pedal edema. SKIN no rashes. NEUROLOGIC: Alert and oriented x3. No focal deficits. LABS: WBC 5, hemoglobin 13, platelets, T-bilirubin is 7.1. AST and ALT are 203 and 221, alkaline phosphatase is 500. CA-19-9 was reported as 11,425. IMPRESSION: Obstructive jaundice with a 7.7 cm cystic lesion in the head of the pancreas. A pseudocyst versus necrotic tumor could not be excluded status post ERCP by Dr. Lombardi yesterday that showed dilated CBD with tapering the distal common bile duct secondary to extrinsic compression, status post biliary sphincterotomy, but no stent was placed. He continues to have persistent elevation of serum transaminases and bilirubin. CA-99 elevated at 11,425 suspicious for pancreatic neoplasm. RECOMMENDATIONS: The findings of the ERCP and lab results were discussed with the patient as well as with Dr. Reich. At this time, we will transfer him to [facility] for endoscopic ultrasound of the pancreas and further management. The patient is agreeable with the plan. Thank you for this consultation. MMODL / IJN: [id number] /
[2019-11-19 07:26] LABS: Glucose,Whole Blood 170 mg/dL (75-99)
[2019-11-19 07:58] VITALS: BP 144/82; PULSE 69; TEMP 98.1
[2019-11-19] MEDS: INSULIN ASPART (NovoLOG) 100 UNIT/ML VIAL SQ SCH ×2 (08:36→12:38)
[2019-11-19] MEDS: carvediloL 6.25 MG TAB PO SCH (08:45)
[2019-11-19] MEDS: ASPIRIN 81 MG PO SCH (08:45)
[2019-11-19] MEDS: PANTOPRAZOLE 40 MG/10 ML VIAL IVP SCH (08:47)
[2019-11-19] MEDS: NICOTINE 14MG/24HR PATCH TRANSDERM SCH (08:47)
[2019-11-19] MEDS: MORPHINE SULFATE 4 MG/ML SYRINGE IVP PRN ×2 (08:58→13:18)
[2019-11-19 11:18] LABS: Basophils % (A) 0 %; Eosinophils # (A) 0.1 k/uL (0-0.7); Eosinophils % (A) 1 %; HCT 41.9 % (39.0-53.0); HGB 13.4 gm/dL (13.0-17.5); Lymphocytes # (A) 0.7 k/uL (1.0-4.8); Lymphocytes % (A) 16 %; MCH 28.7 pg (25.0-35.0); MCV 89.8 fL (80.0-100.0); Mean Platelet Volume 7.4; Monocytes # (A) 0.3 k/uL (0-1.0); Monocytes % (A) 6 %; Neutrophils # (A) 3.5 k/uL (1.3-7.7); Neutrophils % (A) 75 %; RBC 4.67 m/uL (4.30-5.90); RDW 13.6 % (11.5-15.5); WBC 4.7 k/uL (3.8-10.6)
[2019-11-19 11:47] LABS: Glucose,Whole Blood 242 mg/dL (75-99)
[2019-11-19 12:27] LABS: ALT 248 U/L (4-49); AST 228 U/L (17-59); African American GFR (CKD) >90 (>60 ml/min/1.73 sqM); Albumin 3.3 g/dL (3.5-5.0); Albumin/Globulin Ratio 1.3; Alkaline Phosphatase 628 U/L (38-126); Anion Gap 8 mmol/L; Blood Urea Nitrogen 12 mg/dL (9-20); Calcium 8.8 mg/dL (8.4-10.2); Carbon Dioxide 25 mmol/L (22-30); Chloride 101 mmol/L (98-107); Globulin 2.6 g/dL; Glucose 282 mg/dL (74-99); Non-African American GFR(CKD) >90 (>60 ml/min/1.73 sqM); Sodium 134 mmol/L (137-145); Total Bilirubin 10.4 mg/dL (0.2-1.3); Total Protein 5.9 g/dL (6.3-8.2)
[2019-11-19 12:50] LABS: Platelet Count 85 k/uL (150-450)
--- NOTE | 2019-11-19 14:00 | P.PN ---
Subjective Progress Note Date: 11/19/19 Principal diagnosis: Abdominal pain CC 64-year-old pleasant white male admitted to the hospital with abdominal pain, weight loss to almost 60 pounds the last one year duration elevated LFTs and jaundice. He underwent an ERCP by Dr. Lombardi 2 days ago that showed dilated common bile duct with slight tapering at the distal common bile duct, status post biliary sphincterectomy and balloon sweep with good free-flowing of the bile however there was evidence of extrinsic compression noted. The CAT scan done earlier showed a 7.3 cm cystic lesion in the head of the pancreas and possibility of necrotic tumor not to be excluded. His serum transaminases continue to remain elevated. The patient reports no acute changes through the night. He still is reporting abdominal pain. He denies any nausea or vomiting. He has no fevers, chills, or night sweats. Objective - Vital Signs Vital signs: Vital Signs Temp 98.1 F 11/19/19 07:00 Pulse 69 11/19/19 07:00 Resp 16 11/19/19 08:00 BP 144/82 11/19/19 07:00 Pulse Ox 96 11/19/19 07:00 Intake & Output 11/18/19 11/19/19 11/19/19 18:59 06:59 18:59 Intake Total 200 420 Balance 200 420 Weight 81.556 kg Intake: Oral 200 420 Other: # Voids 3 - Exam General appearance: The patient is alert, oriented, in no acute distress. Thin. HET: Head is normocephalic and atraumatic. Conjunctiva Smiley. Sclera icterus. Neck: Supple without lymphadenopathy. Abdomen: Soft, diffuse tenderness, more so in epigastric and right upper quadrant area, nondistended with bowel sounds. Extremities: Normal skin color and turgor. No pedal edema. Neurological: No focal deficits. Alert and oriented 3. - Labs CBC & Chem 7: 11/19/19 10:42 11/19/19 10:42 Labs: Abnormal Lab Results - Last 24 Hours (Table) 11/18/19 11/18/19 11/18/19 Range/Units 06:45 17:12 20:43 Plt Count (150-450) k/uL Lymphocytes # (1.0-4.8) k/uL Sodium (137-145) mmol/L Creatinine (0.66-1.25) mg/dL Glucose (74-99) mg/dL POC Glucose (mg/dL) 268 H 244 H (75-99) mg/dL Total Bilirubin (0.2-1.3) mg/dL AST (17-59) U/L ALT (4-49) U/L Alkaline Phosphatase (38-126) U/L Total Protein (6.3-8.2) g/dL Albumin (3.5-5.0) g/dL CA 19-9 Antigen 74936.6 H (0.0-34.9) U/mL 11/19/19 11/19/19 11/19/19 Range/Units 07:14 10:42 10:42 Plt Count 85 L (150-450) k/uL Lymphocytes # 0.7 L (1.0-4.8) k/uL Sodium 134 L (137-145) mmol/L Creatinine 0.53 L (0.66-1.25) mg/dL Glucose 282 H (74-99) mg/dL POC Glucose (mg/dL) 170 H (75-99) mg/dL Total Bilirubin 10.4 H (0.2-1.3) mg/dL AST 228 H (17-59) U/L ALT 248 H (4-49) U/L Alkaline Phosphatase 628 H (38-126) U/L Total Protein 5.9 L (6.3-8.2) g/dL Albumin 3.3 L (3.5-5.0) g/dL CA 19-9 Antigen (0.0-34.9) U/mL 11/19/19 Range/Units 11:45 Plt Count (150-450) k/uL Lymphocytes # (1.0-4.8) k/uL Sodium (137-145) mmol/L Creatinine (0.66-1.25) mg/dL Glucose (74-99) mg/dL POC Glucose (mg/dL) 242 H (75-99) mg/dL Total Bilirubin (0.2-1.3) mg/dL AST (17-59) U/L ALT (4-49) U/L Alkaline Phosphatase (38-126) U/L Total Protein (6.3-8.2) g/dL Albumin (3.5-5.0) g/dL CA 19-9 Antigen (0.0-34.9) U/mL Assessment and Plan (1) Abdominal pain Narrative/Plan: 64-year-old male presenting to the hospital with abdominal pain, nausea, decreased oral intake and weight loss. Found on imaging to have a pancreatic pseudocyst versus necrotic mass with laboratory evaluation significant for total bilirubin of 8. Both ultrasound and CT showed a distended gallbladder with a dilated CBD. He is status post ERCP that showed dilated common bile duct with slight tapering at the distal common bile duct, status post biliary sphincterectomy and balloon sweep with good free-flowing of the bile, however there was evidence of extrinsic compression noted. Status: Acute Code(s): R10.9 - UNSPECIFIED ABDOMINAL PAIN SNOMED Code(s): 77435511 (2) Hyperbilirubinemia Status: Acute Code(s): E80.6 - OTHER DISORDERS OF BILIRUBIN METABOLISM SNOMED Code(s): 62845290 (3) Nausea and vomiting Status: Acute Code(s): R11.2 - NAUSEA WITH VOMITING, UNSPECIFIED SNOMED Code(s): 28624259 Plan: 1. The findings of the ERCP and lab results were discussed with the patient as well as Dr. Reich. It has been decided that the patient should be transferred to [facility] for endoscopic ultrasound of the pancreas and further management. The patient is agreeable with the plan. 2. Increase diet to heart healthy diet 3. Daily CMP 4. We Will monitor closely The above dictated assessment and findings were discussed with Dr. Mary Ann Bonds. The impression and plan of care have been directed as dictated.
--- NOTE | 2019-11-19 16:09 | P.PN ---
Subjective Progress Note Date: 11/19/19 Principal diagnosis: Epigastric pain Patient feels about the same today. Still having pain. Labs demonstrated persistent elevation of liver enzymes. Plan is for transfer to [facility] today. Objective - Vital Signs Vital signs: Vital Signs Temp 98.1 F 11/19/19 07:00 Pulse 69 11/19/19 07:00 Resp 16 11/19/19 08:00 BP 144/82 11/19/19 07:00 Pulse Ox 96 11/19/19 07:00 Intake & Output 11/18/19 11/19/19 11/19/19 18:59 06:59 18:59 Intake Total 200 420 Balance 200 420 Weight 81.556 kg Intake: Oral 200 420 Other: # Voids 3 - Exam Abdomen: Soft, nondistended, epigastric tenderness noted - Labs CBC & Chem 7: 11/19/19 10:42 11/19/19 10:42 Labs: Abnormal Lab Results - Last 24 Hours (Table) 11/18/19 11/18/19 11/19/19 Range/Units 17:12 20:43 07:14 Plt Count (150-450) k/uL Lymphocytes # (1.0-4.8) k/uL Sodium (137-145) mmol/L Creatinine (0.66-1.25) mg/dL Glucose (74-99) mg/dL POC Glucose (mg/dL) 268 H 244 H 170 H (75-99) mg/dL Total Bilirubin (0.2-1.3) mg/dL AST (17-59) U/L ALT (4-49) U/L Alkaline Phosphatase (38-126) U/L Total Protein (6.3-8.2) g/dL Albumin (3.5-5.0) g/dL 11/19/19 11/19/19 11/19/19 Range/Units 10:42 10:42 11:45 Plt Count 85 L (150-450) k/uL Lymphocytes # 0.7 L (1.0-4.8) k/uL Sodium 134 L (137-145) mmol/L Creatinine 0.53 L (0.66-1.25) mg/dL Glucose 282 H (74-99) mg/dL POC Glucose (mg/dL) 242 H (75-99) mg/dL Total Bilirubin 10.4 H (0.2-1.3) mg/dL AST 228 H (17-59) U/L ALT 248 H (4-49) U/L Alkaline Phosphatase 628 H (38-126) U/L Total Protein 5.9 L (6.3-8.2) g/dL Albumin 3.3 L (3.5-5.0) g/dL Assessment and Plan (1) Hyperbilirubinemia Narrative/Plan: Agree with plans for transfer. Await endoscopic ultrasound versus MRI. Status: Acute Code(s): E80.6 - OTHER DISORDERS OF BILIRUBIN METABOLISM SNOMED Code(s): 92756243
--- NOTE | 2019-11-19 20:11 | P.PN ---
Subjective Progress Note Date: 11/19/19 (courtney charting seen at 1015) Principal diagnosis: abdominal pain Patient is a 64-year-old male for history of hypertension and dyslipidemia who initially presented from the emergency department with abdominal discomfort, anorexia, and weight loss. Patient underwent an ER CP with cholangiogram which demonstrated a dilated duct with concern for external compression, he underwent a sphincterotomy and balloon sweep of the common bile duct. Alpha-fetoprotein negative, CA-19-9 elevated at greater than thousand. Arrangements were made for transfer to [facility] on 11/17, however insurance authorization was not obtained. Insurance authorization has been obtained on 11/18 we'll proceed with transfer. No significant events overnight or change in overall plan of care. Patient seen and examined at bedside. He reports that his pain is controlled with the pain medications, no chest pain, no shortness of breath, nausea that is controlled with his Zofran. No other complaints or concerns currently. General: non toxic, no distress, appears at stated age Derm: warm, dry Head: atraumatic, normocephalic, symmetric Eyes: EOMI, no lid lag, anicteric sclera Mouth: no lip lesion, mucus membranes moist Cardiovascular: S1S2 reg, no murmur, positive posterior tibial pulse bilateral, Lungs: CTA bilateral, no rhonchi, no rales , no accessory muscle use Abdominal: soft, tender to palpation periumbilical, no guarding, no appreciable organomegaly Ext: no gross muscle atrophy, no edema, no contractures Neuro: CN II-XI grossly intact, no focal neuro deficits Psych: Alert, oriented, appropriate affect Pancreatic mass with distended gallbladder and biliary duct suspicious for malignancy Hypokalemia Diabetes mellitus type 2 with hyperglycemia-newly discovered, 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 At this time bed has been obtained. Objective - Vital Signs Vital signs: Vital Signs Temp 98.1 F 11/19/19 07:00 Pulse 69 11/19/19 07:00 Resp 16 11/19/19 08:00 BP 144/82 11/19/19 07:00 Pulse Ox 96 11/19/19 07:00 Intake & Output 11/19/19 11/19/19 11/20/19 06:59 18:59 06:59 Intake Total 420 Balance 420 Intake: Oral 420 - Labs CBC & Chem 7: 11/19/19 10:42 11/19/19 10:42 Labs: Abnormal Lab Results - Last 24 Hours (Table) 11/18/19 11/19/19 11/19/19 Range/Units 20:43 07:14 10:42 Plt Count (150-450) k/uL Lymphocytes # (1.0-4.8) k/uL Sodium 134 L (137-145) mmol/L Creatinine 0.53 L (0.66-1.25) mg/dL Glucose 282 H (74-99) mg/dL POC Glucose (mg/dL) 244 H 170 H (75-99) mg/dL Total Bilirubin 10.4 H (0.2-1.3) mg/dL AST 228 H (17-59) U/L ALT 248 H (4-49) U/L Alkaline Phosphatase 628 H (38-126) U/L Total Protein 5.9 L (6.3-8.2) g/dL Albumin 3.3 L (3.5-5.0) g/dL 11/19/19 11/19/19 Range/Units 10:42 11:45 Plt Count 85 L (150-450) k/uL Lymphocytes # 0.7 L (1.0-4.8) k/uL Sodium (137-145) mmol/L Creatinine (0.66-1.25) mg/dL Glucose (74-99) mg/dL POC Glucose (mg/dL) 242 H (75-99) mg/dL Total Bilirubin (0.2-1.3) mg/dL AST (17-59) U/L ALT (4-49) U/L Alkaline Phosphatase (38-126) U/L Total Protein (6.3-8.2) g/dL Albumin (3.5-5.0) g/dL
== END 2019-11-19 13:40 | disposition short-term general hospital (02) | DRG 435 ==
LOC: EC 17:16 → 4SSUR 19:35
PROVIDERS: ADMIT Family Medicine; ATTEND Family Medicine
PROC: 0F798ZZ Dilation of Common Bile Duct, Via Natural or Artificial Opening Endoscopic (ICD-10-PCS; principal; 2019-11-17 09:30)
DX: C25.9 Malignant neoplasm of pancreas, unspecified (principal); K83.1 Obstruction of bile duct; D69.6 Thrombocytopenia, unspecified; I25.10 Atherosclerotic heart disease of native coronary artery without angina pectoris; I10 Essential (primary) hypertension; E78.5 Hyperlipidemia, unspecified; R63.4 Abnormal weight loss; E86.0 Dehydration; E87.6 Hypokalemia; E11.65 Type 2 diabetes mellitus with hyperglycemia; F17.200 Nicotine dependence, unspecified, uncomplicated; I25.2 Old myocardial infarction; Z79.899 Other long term (current) drug therapy; Z79.82 Long term (current) use of aspirin; Z95.5 Presence of coronary angioplasty implant and graft; Z98.890 Other specified postprocedural states; Z68.23 Body mass index [BMI] 23.0-23.9, adult
CPT/HCPCS: 36415; 43262; 74177; 74330; 76705; 80053; 80329; 82105; 82150; 82550; 83036; 83520; 83690; 83735; 84484; 85025; 85027; 85610; 85730; 86301; 96361; 96374; 96375; 99285